=== PATIENT | male | born 1980 | race African-American/Black ===

== ENCOUNTER 2022-04-16 07:14 | Emergency (ER) | payer OTHER ==
[~2022-04-16] VITALS: Ht 172.7 cm; Wt 81.6 kg
--- NOTE | 2022-04-16 07:31 | NUR ---
sent by to ER, for uncontrolled high blood pressure.
--- NOTE | 2022-04-16 07:32 | NUR ---
EKG done at - copy provided and placed in the patient's chart
--- NOTE | 2022-04-16 07:33 | NUR ---
awaiting for MD to see the patient - placed in ER 07
--- NOTE | 2022-04-16 07:33 | NUR ---
the patient also admits that he has been through a lot of work-related stress lately.
[2022-04-16] MEDS ORDERED: ONDANSETRON HCL/PF 4 MG/2 ML VIAL ONE (08:29)
[2022-04-16] MEDS ORDERED: ONDANSETRON HCL/PF 4 MG/2 ML VIAL IV ONE (08:30)
[2022-04-16] MEDS ORDERED: hydrALAZINE HCL 10 MG TABLET PO ONE (08:30)
[2022-04-16] MEDS ORDERED: IV NS 0.9% 1,000 ML IV ONE (08:30)
[2022-04-16] MEDS ORDERED: HYDR25TA4 PO ×2 (08:38→09:03)
[2022-04-16 08:55] LABS: BASOPHILS % (AUTO) 0.2 % (0.0-2.0); EOSINOPHILS % (AUTO) 1.4 % (0.0-6.0); HEMATOCRIT 37 % (39-51); LYMPHOCYTES # (AUTO) 1.7 K/uL (0.8-4.8); LYMPHOCYTES % (AUTO) 22.3 % (20.0-44.0); MEAN CORPUSCULAR HGB CONC 33 g/dl (31.0-36.0); MEAN CORPUSCULAR VOLUME 72 fL (80-96); MONOCYTES # (AUTO) 0.9 K/uL (0.1-1.30); MONOCYTES % (AUTO) 11.8 % (2.0-12.0); NEUTROPHILS # (AUTO) 4.9 K/uL (1.8-8.9); NEUTROPHILS % (AUTO) 64.3 % (43.0-81.0); PLATELET COUNT (AUTO) 280 K/uL (150-450); RED BLOOD CELL COUNT(AUTO) 5.14 MIL/uL (4.5-6.0); WHITE BLOOD COUNT (AUTO) 7.7 K/uL (4.3-11.0)
--- NOTE | 2022-04-16 09:00 | NUR ---
PT DENIES ANY PAIN OR BURRY VISION
[2022-04-16] MEDS ORDERED: ONDA4TAB5 PO ×2 (09:02→09:03)
[2022-04-16 09:11] LABS: ALBUMIN 3.3 g/dL (3.4-5.0); BILIRUBIN,DIRECT 0.2 mg/dL (0.0-0.2); BILIRUBIN,TOTAL 0.5 mg/dL (0.2-1.0); CALCIUM, SERUM 8.2 mg/dL (8.5-10.1); CREATININE 1.3 mg/dL (0.6-1.3); POTASSIUM 3.6 mmol/L (3.5-5.1); TOTAL PROTEIN, SERUM 6.6 g/dL (6.4-8.2)
--- NOTE | 2022-04-16 09:33 | NUR ---
PT REFUSED IV LINE AND IV AND IV HYDRATION PO MEDS GIVEN FOR HYOERTENSION
[2022-04-16 09:45] VITALS: BP 176/100
== END 2022-04-16 09:46 | disposition home or self-care (01) ==
LOC: ER 07:23
DX: I10 Essential (primary) hypertension (principal); R11.2 Nausea with vomiting, unspecified; Z79.899 Other long term (current) drug therapy
CPT/HCPCS: 36415; 80048-TC; 80076-TC; 83690-TC; 85025-TC; J2405; J7030

== ENCOUNTER 2022-05-22 13:38 | Inpatient (IN) | payer OTHER ==
[~2022-05-22] VITALS: Ht 172.7 cm; Wt 81.2 kg
[~2022-05-22 13:38] MED LIST: HYDR25TA4 PO; ONDA4TAB5 PO
--- NOTE | 2022-05-22 13:50 | NUR ---
BIBA 99 FOUND ON THE SIDEWALK ALTERED, WEAK . BS 93 -HX. SEIZURE
--- NOTE | 2022-05-22 14:04 | NUR ---
AT BED SIDE FOR EVAL
--- NOTE | 2022-05-22 14:16 | NUR ---
IV LINE ESTABLISHED 20 G LEFT AC ,
[2022-05-22 14:25] LABS: BASOPHILS % (AUTO) 0.4 % (0.0-2.0); EOSINOPHILS % (AUTO) 0.6 % (0.0-6.0); HEMATOCRIT 38 % (39-51); HEMOGLOBIN 12.4 g/dL (13.5-17.5); LYMPHOCYTES % (AUTO) 11.6 % (20.0-44.0); MEAN CORPUSCULAR HGB CONC 33 g/dl (31.0-36.0); MEAN CORPUSCULAR VOLUME 70 fL (80-96); MONOCYTES # (AUTO) 0.7 K/uL (0.1-1.30); MONOCYTES % (AUTO) 8.8 % (2.0-12.0); NEUTROPHILS # (AUTO) 6.7 K/uL (1.8-8.9); NEUTROPHILS % (AUTO) 78.6 % (43.0-81.0); PLATELET COUNT (AUTO) 423 K/uL (150-450); RED BLOOD CELL COUNT(AUTO) 5.44 MIL/uL (4.5-6.0); WHITE BLOOD COUNT (AUTO) 8.5 K/uL (4.3-11.0)
[2022-05-22] MEDS ORDERED: IV NS 0.9% 1,000 ML BAG IV ONE (14:30)
[2022-05-22 14:58] LABS: CALCIUM, SERUM 8.6 mg/dL (8.5-10.1); CARBON DIOXIDE 21 mmol/L (21-32); CHLORIDE 101 mmol/L (98-107); CREATININE 1.8 mg/dL (0.6-1.3); GLUCOSE 144 mg/dL (74-106); POTASSIUM 3.2 mmol/L (3.5-5.1); SODIUM SERUM 136 mmol/L (136-145); UREA NITROGEN, BLOOD 7 mg/dL (7-18)
[2022-05-22 15:04] LABS: ACETAMINOPHEN < 10 ug/ml (10-30); ALANINE AMINOTRANSFERASE 36 U/L (12-78); ALBUMIN 3.8 g/dL (3.4-5.0); ALKALINE PHOSPHATASE 62 U/L (46-116); ASPARTATE AMINOTRANSFERASE 31 U/L (15-37); BILIRUBIN,DIRECT 0.2 mg/dL (0.0-0.2); BILIRUBIN,TOTAL 0.8 mg/dL (0.2-1.0); TOTAL PROTEIN, SERUM 7.4 g/dL (6.4-8.2)
[2022-05-22 15:07] LABS: ALCOHOL, BLOOD < 3 mg/dL (0-0)
[2022-05-22] MEDS ORDERED: POTASSIUM CHLORIDE 20 MEQ TAB.PRT.SR PO ONE ×3 (16:00→16:09)
--- NOTE | 2022-05-22 16:06 | NUR ---
URINE SAMPLE OBTAINED
[2022-05-22 16:23] LABS: EOSINOPHILS % (MANUAL) 1 % (0-4); LYMPHOCYTES % (MANUAL) 13 % (16-48); MONOCYTES % (MANUAL) 12 % (0-11.0); NEUTROPHILS % (MANUAL) 74 (42-76)
--- NOTE | 2022-05-22 16:40 | NUR ---
PATIENT HAD WITNESSED SEIZURE WHILE MAKING A PHONE CALL FELL FROM THE CHAIR AND HIT HIS NOSE THAT RESULTED IN BLEEDING. 2MG ATIVAN GIVEN IV. ADDITIONAL ORDERS PLACED BY MD. PATIENT IS STABLE RIGHT NOW. SEIZURE PRECAUTION INITIATED.
[2022-05-22] MEDS ORDERED: LORAZEPAM INJ 2 MG/ML VIAL ONE (16:48)
[2022-05-22 17:00] LABS: BILIRUBIN,URINE NEGATIVE (NEGATIVE); COLOR,URINE YELLOW (YELLOW); LEUKOCYTE ESTERASE ,URINE TRACE (NEGATIVE); NITRITE, URINE NEGATIVE (NEGATIVE); PH,URINE 6.5 (5.0-8.0); PROTEIN,URINE TRACE mg/dl (NEGATIVE); UGLUCOSE NEGATIVE (NEGATIVE); UROBILINOGEN,URINE 0.2 EU/dL (0.2)
[2022-05-22] MEDS ORDERED: LEVETIRACETAM (500MG) 1,500 MG in IV NS 0.9% 100 ML IV SCH (17:00)
[2022-05-22] MEDS ORDERED: LORAZEPAM INJ 2 MG/ML VIAL IV ONE (17:00)
[2022-05-22] MEDS ORDERED: BUPR-319 PO (17:01)
--- NOTE | 2022-05-22 17:20 | NUR ---
MOVE SHEET SUBMITTED.
--- NOTE | 2022-05-22 17:25 | NUR ---
covid swab taken
--- NOTE | 2022-05-22 18:15 | NUR ---
MARCIA SUPERVISIOR: [phone]
[2022-05-22 18:38] LABS: BACTERIA,URINE 2+ /HPF (None Seen); RBC,URINE 0-2 /HPF (0-2)
--- NOTE | 2022-05-22 19:19 | NUR ---
DR. RICHARDS SPEAKING WITH DR. BARBER.
--- NOTE | 2022-05-22 19:33 | NUR ---
RM 322-1
--- NOTE | 2022-05-22 19:34 | NUR ---
CLINICAL REPORT GIVEN TO GABINO HERNANDEZ CM
--- NOTE | 2022-05-22 20:33 | NUR ---
[facility] PAGED
--- NOTE | 2022-05-22 20:34 | NUR ---
REPORT GIVEN TO REESE CubaW RN FOR RENE
[2022-05-22] MEDS ORDERED: ONDANSETRON HCL/PF 4 MG/2 ML VIAL IVP PRN (21:00)
--- NOTE | 2022-05-22 22:06 | NUR ---
PT TRANSFERRED TO 3W 322 VIA ACLS PROTOCOL. VSS. ALL BELONGINGS WITH PT
--- NOTE | 2022-05-22 23:00 | NUR ---
FOOD PRODUCTION MANAGERAUTO ADJUDICATION SPECIALIST NOTES: RECEIVED PATIENT VIA GURNEY FROM ER ON STABLE CONDITION, TRANSFER TO ROOM [facility], PLACED COMFORTABLY IN BED, BED IN LOW POSITION CALL LIGHTS WITHIN REACH , NO COMPLAIN OF PAIN AND DISCOMFORT AT THIS TIME, ON ROOM AIR SATURATING WELL, PATIENT ON TELE MONITOR- SR-98, IV LINE AT LAC#20 WITH ONGOING 0.9NSS@75ML/HR INFUSING WELL, SKIN ASSESSMENT DONE AND DOCUMENTED, PICTURE TAKEN FOR SKIN ISSUES, WITH WOUND CONSULT ORDER, INVENTORIES OF PERSONAL BELONGINGS DONE AND SIGNED, PATIENT WAS ORIENTED TO PLACE, REMIND TO USE CALL LIGHTS WHEN NEEDED ASSISTANCE, PATIENT KEPT CLEAN AND DRY ALL NEEDS MET WILL CONTINUE TO MONITOR.
--- NOTE | 2022-05-22 23:15 | NUR ---
RN NOTES SPOKE TO DR AMY ATKINS AND REQUEST AN ORDER FOR DIET PER HOSPITALIST TO PUT ON REGULAR DIET NOTED AND CARRY OUT.
[2022-05-22] MEDS: IV NS 0.9% 1,000 ML IV SCH (23:28)
[2022-05-22] MEDS: CEFTRIAXONE 1 G in IV D5W 50 ML IV SCH (23:28)
[2022-05-22] MEDS: HEPARIN SODIUM, PORCINE 5000 UNITS/1 ML VIAL SQ SCH (23:43)
[2022-05-23] VITALS: BP 145/93
[2022-05-23 04:00] VITALS: BP 147/100
[2022-05-23 05:53] LABS: BASOPHILS % (AUTO) 0.4 % (0.0-2.0); EOSINOPHILS % (AUTO) 0.5 % (0.0-6.0); HEMATOCRIT 34 % (39-51); HEMOGLOBIN 11.2 g/dL (13.5-17.5); LYMPHOCYTES # (AUTO) 1.2 K/uL (0.8-4.8); LYMPHOCYTES % (AUTO) 13.3 % (20.0-44.0); MEAN CORPUSCULAR HGB CONC 33 g/dl (31.0-36.0); MEAN CORPUSCULAR VOLUME 69 fL (80-96); MONOCYTES # (AUTO) 1.1 K/uL (0.1-1.30); MONOCYTES % (AUTO) 11.3 % (2.0-12.0); NEUTROPHILS % (AUTO) 74.5 % (43.0-81.0); PLATELET COUNT (AUTO) 388 K/uL (150-450); RED BLOOD CELL COUNT(AUTO) 4.85 MIL/uL (4.5-6.0); WHITE BLOOD COUNT (AUTO) 9.4 K/uL (4.3-11.0)
--- NOTE | 2022-05-23 06:05 | NUR ---
METER TECHNICIAN CLOSING NOTES; PATIENT SLEEP IN BED COMFORTABLY, BED IN LOW POSITION CALL LIGHTS WITHIN REACH, NO COMPLAIN OF PAIN AND DISCOMFORT AT THIS TIME, ON ROOM AIR SATURATING WELL, NO SOB WAS OBSERVED, ON TELE MONITOR- SR97, NO SYMPTOMS WAS OBSERVED, PATIENT KEPT CLEAN AND DRY ALL NEEDS MET WILL CONTINUE TO MONITOR.
[2022-05-23 06:08] LABS: ALBUMIN 3.1 g/dL (3.4-5.0); BILIRUBIN,TOTAL 1.1 mg/dL (0.2-1.0); CALCIUM, SERUM 7.9 mg/dL (8.5-10.1); CREATININE 1.6 mg/dL (0.6-1.3); MAGNESIUM 2.3 mg/dL (1.8-2.4); PHOSPHORUS 2.5 mg/dL (2.5-4.9); POTASSIUM 3.3 mmol/L (3.5-5.1); TOTAL PROTEIN, SERUM 6.5 g/dL (6.4-8.2)
[2022-05-23 07:00] VITALS: BP 156/108
--- NOTE | 2022-05-23 07:25 | NUR ---
RN OPENING NOTE RECEIVED PATIENT IB BED, ASLEEP, EASILY AWAKENED. NO SIGNS OF ACUTE DISTRESS NOTED. OLN ROOM AIR, NO SOB NOTED, BREATHING EVEN AND UNLABORED. NOTED WITH IV ACCESS ON LEFT AC #20G, INTACT AND PATENT WITH NS @75ML/HR RUNNING. ON TELE MONITOR SHOWING SINUS RHYTHM, HR @98. NO C/O PAIN AT THIS TIME. SAFETY MEASURE IN PLACE. BED IN LOW AND LOCKED POSITION, SIDE RAILS UP X2, CALL LIGHT PLACED WITHIN EASY REACH. WILL CONTINUE TO MONITOR PATIENT.
[2022-05-23] MEDS: LEVETIRACETAM (500MG) 500 MG in IV NS 0.9% 100 ML IV SCH ×2 (08:17→20:23)
[2022-05-23] MEDS: HEPARIN SODIUM, PORCINE 5000 UNITS/1 ML VIAL SQ SCH ×2 (08:18→20:28)
[2022-05-23] MEDS: HYDROCHLOROTHIAZIDE 25 MG TABLET PO SCH (08:21)
--- NOTE | 2022-05-23 08:24 | NUR ---
WOUND CARE CONSULT: PT PRESENTS WITH FACIAL ABRASIONS TO FOREHEAD AND AREA BETWEEN UPPER LIP AND NOSE, PRESENT ON ADMISSION. RECOMMEND SURGICAL CONSULT. DR TAY CALLED. RECOMMENDATIONS MADE FOR SKIN PROTECTION AND DISCUSSED WITH NURSING STAFF.
[2022-05-23] MEDS: NEOMY SULF/BACITRAC ZN/POLY 15 GM TUBE TP SCH ×2 (09:23→19:47)
[2022-05-23] MEDS ORDERED: POTASSIUM CHLORIDE 10 MEQ/50 ML PREMIXED IVPB FOR PERIPHERAL LINE IV ONE (12:00)
[2022-05-23] MEDS: POTASSIUM CL. PREMIX PERIPHER. 50 ML IV SCH ×2 (12:11→13:12)
[2022-05-23] MEDS: IV NS 0.9% 1,000 ML IV SCH (12:50)
[2022-05-23 13:10] VITALS: BP 156/108
[2022-05-23 16:26] VITALS: BP 159/114
--- NOTE | 2022-05-23 18:46 | NUR ---
RN CLOSING NOTE PATIENT IB BED, AWAKE, A/O X3. FAMILY AT BEDSIDE. NO SIGNS OF ACUTE DISTRESS NOTED. REMAINS STABLE ON ROOM AIR, NO SOB NOTED, BREATHING EVEN AND UNLABORED. IV ACCESS ON LEFT AC #20G, INTACT AND PATENT WITH NS @75ML/HR INFUSING WELL. ON TELE MONITOR SHOWING SINUS TACH, HR @112. SAFETY MEASURE MAINTAINED. BED IN LOW AND LOCKED POSITION, SIDE RAILS UP X2, CALL LIGHT PLACED WITHIN EASY REACH. WILL ENDORSE TO NEXT SHIFT FOR CONTINUITY OF CARE.
--- NOTE | 2022-05-23 19:36 | NUR ---
LUMBER DRIVER OPENING NOTE RECEIVED PATIENT FROM AM NURSE; PATIENT IN BED, ASLEEP, EASILY AWAKENED; WITH NO SIGNS OF ACUTE DISTRESS NOTED; STABLE ON ROOM AIR, NO SOB NOTED, BREATHING EVENLY AND UNLABORED; WITH IV ACCESS ON LAC #20G, INTACT AND PATENT WITH NORMAL SALINE INFUSING @ 75ML/HR; ON TELE MONITOR READING SINUS RHYTHM, HR @ 98 BPMS. NO COMPLAINTS OF PAIN AND DISCOMFORT AT THIS TIME; ENCOURAGED VERBALIZATION OF NEEDS; SAFETY MEASURES IN PLACE; BED IN LOW AND LOCKED POSITION, SIDE RAILS UP X 2, CALL LIGHT WITHIN EASY REACH; WILL CONTINUE TO MONITOR THROUGHOUT SHIFT
[2022-05-23] MEDS: CEFTRIAXONE 1 G in IV D5W 50 ML IV SCH (21:02)
[2022-05-23] MEDS: hydrALAZINE HCL IV 20 MG VIAL IV PRN (21:20)
--- NOTE | 2022-05-23 21:30 | NUR ---
KIER DRIER NOTE SURGICAL TECH INFORMED ME THAT PATIENT'S BLOOD PRESSURE WAS 153/120. CHECKED BLOOD PRESSURE MANUALLY AND BLOOD PRESSURE WAS 160/100. CHARGE NURSE MADE AWARE. ADMINISTERED HYDRALAZINE PRN ORDERED. WILL CONTINUE TO MONITOR
--- NOTE | 2022-05-23 22:00 | NUR ---
TEACHER ADULT EDUCATION NOTE PATIENT COMPLAINED FINDING IT HARD TO BREATHE. NOTED EPISODES OF SHORTNESS OF BREATH. HOOKED TO OXYGEN VIA NASAL CANNULA AT 2 LPM. OXYGEN SATURATION AT 100%. WILL CONTINUE TO MONITOR
[2022-05-23] MEDS: MORPHINE SULFATE INJ 2 MG/ML DISP.SYRIN IV PRN (22:51)
[2022-05-24] MEDS: IV NS 0.9% 1,000 ML IV SCH ×2 (00:58→12:22)
[2022-05-24] MEDS: hydrALAZINE HCL IV 20 MG VIAL IV PRN ×3 (04:58→17:56)
--- NOTE | 2022-05-24 05:00 | NUR ---
TEST CONSULTANT NOTE BLOOD PRESSURE WAS 150/102 AND PULSE RATE WAS 95 BPM. ADMINISTERED HYDRALAZINE PRN ORDERED. CHARGE NURSE MADE AWARE. WILL CONTINUE TO MONITOR
[2022-05-24 06:17] LABS: BASOPHILS # (AUTO) 0.1 K/uL (0.0-0.2); EOSINOPHILS % (AUTO) 1.6 % (0.0-6.0); HEMATOCRIT 37 % (39-51); LYMPHOCYTES # (AUTO) 1.6 K/uL (0.8-4.8); MEAN CORPUSCULAR HGB CONC 33 g/dl (31.0-36.0); MEAN CORPUSCULAR VOLUME 69 fL (80-96); NEUTROPHILS # (AUTO) 4.5 K/uL (1.8-8.9); NEUTROPHILS % (AUTO) 61.4 % (43.0-81.0); PLATELET COUNT (AUTO) 399 K/uL (150-450); RED BLOOD CELL COUNT(AUTO) 5.27 MIL/uL (4.5-6.0); WHITE BLOOD COUNT (AUTO) 7.3 K/uL (4.3-11.0)
[2022-05-24 06:28] LABS: CALCIUM, SERUM 8.3 mg/dL (8.5-10.1); CREATININE 1.4 mg/dL (0.6-1.3); MAGNESIUM 2.2 mg/dL (1.8-2.4); PHOSPHORUS 3.1 mg/dL (2.5-4.9); POTASSIUM 3.3 mmol/L (3.5-5.1)
[2022-05-24] MEDS: ACETAMINOPHEN 325 MG TABLET PO PRN ×2 (06:31→17:56)
--- NOTE | 2022-05-24 06:35 | NUR ---
PERIOPERATIVE TECH NOTE PATIENT WOKE UP AND COMPLAINED OF HEADACHE AND BODY SORENESS. CHECKED VITAL SIGNS. INSISTED TO HAVE TYLENOL FOR PAIN RELIEF. ADMINISTERED TYLENOL PRN ORDERED. CHARGE NURSE MADE AWARE. WILL CONTINUE TO MONITOR
--- NOTE | 2022-05-24 07:00 | NUR ---
PROCESS DESCRIPTION WRITER CLOSING NOTE PATIENT IN BED, ASLEEP, EASILY AWAKENED; WITH NO SIGNS OF ACUTE DISTRESS NOTED; STABLE ON ROOM AIR, NO SHORTNESS OF BREATH NOTED, BREATHING EVENLY AND UNLABORED; WITH IV ACCESS ON LAC G#20, INTACT AND PATENT WITH NORMAL SALINE INFUSING AT 75ML/HR; ON TELE MONITOR CURRENTLY READING SINUS RHYTHM HR 90S BPMS; ADMINISTERED MEDICATIONS PRESCRIBED; PATIENT'S NEEDS ATTENDED; MONITORED PATIENT ACCORDINGLY; SAFETY MEASURES IN PLACE; BED IN LOW AND LOCKED POSITION, SIDE RAILS UP X 2, CALL LIGHT WITHIN EASY REACH; WILL ENDORSE TO AM NURSE FOR RENE.
[2022-05-24 08:00] VITALS: BP 151/111
[2022-05-24] MEDS: LEVETIRACETAM (500MG) 500 MG in IV NS 0.9% 100 ML IV SCH (08:48)
[2022-05-24] MEDS: BUPROPION XL 150 MG TAB.ER.24 PO SCH (08:49)
[2022-05-24] MEDS: HYDROCHLOROTHIAZIDE 25 MG TABLET PO SCH (08:49)
[2022-05-24] MEDS: NEOMY SULF/BACITRAC ZN/POLY 15 GM TUBE TP SCH ×2 (08:50→09:10)
[2022-05-24] MEDS: HEPARIN SODIUM, PORCINE 5000 UNITS/1 ML VIAL SQ SCH ×2 (08:50→20:29)
[2022-05-24] MEDS ORDERED: POTASSIUM CHLORIDE 20 MEQ TAB.PRT.SR PO ONE (11:00)
--- NOTE | 2022-05-24 11:16 | NUR ---
[facility] GUNSMITH OPENING NOTE PATIENT AWAKE IN BED, [id number] NO SIGNS OF ACUTE DISTRESS NOTED; STABLE ON ROOM AIR, NO SHORTNESS OF BREATH NOTED, BREATHING EVENLY AND UNLABORED; WITH IV ACCESS ON LAC G#20, INTACT AND PATENT WITH NORMAL SALINE INFUSING AT 75ML/HR; ON TELE MONITOR CURRENTLY READING SINUS RHYTHM HR 90S BPMS; ADMINISTERED MEDICATIONS PRESCRIBED; PATIENT'S NEEDS ATTENDED; MONITORED PATIENT ACCORDINGLY; SAFETY MEASURES IN PLACE; BED IN LOW AND LOCKED POSITION, SIDE RAILS UP X 2, CALL LIGHT WITHIN EASY REACH; WILL ENDORSE TO AM NURSE FOR RENE. Addendum: 05/24/22 at 1120 by IZABELLA SERRA RN [facility] OPENING NOTE PATIENT AWAKE IN BED AROUND 0800H, [id number] NO SIGNS OF ACUTE DISTRESS NOTED; STABLE ON ROOM AIR, NO SHORTNESS OF BREATH NOTED, BREATHING EVENLY AND UNLABORED; WITH IV ACCESS ON LAC G#20, INTACT AND PATENT WITH NORMAL SALINE INFUSING AT 75ML/HR; ON TELE MONITOR CURRENTLY READING SINUS TACHYCARDIA HR 102 BPM; NO C/O PAIN OR DISCOMFORT AT THIS TIME SAFETY MEASURES IN PLACE; BED IN LOW AND LOCKED POSITION, SIDE RAILS UP X 2, CALL LIGHT WITHIN EASY REACH; WILL CONTINUE TO MONITOR.
--- NOTE | 2022-05-24 13:50 | NUR ---
RN NOTES PATIENT C/O CHEST PAIN, VITALS TAKEN. BP-165/120 RR-18 WV-80 SPO2-94%. INCREASED OXYGEN TO 4LPM, [address] SWEEPER OPERATOR MADE AWARE, ECG STAT ORDERED. WILL MONITOR.
[2022-05-24 14:46] LABS: BASOPHILS % (AUTO) 0.3 % (0.0-2.0); EOSINOPHILS % (AUTO) 0.7 % (0.0-6.0); HEMATOCRIT 41 % (39-51); HEMOGLOBIN 13.2 g/dL (13.5-17.5); LYMPHOCYTES # (AUTO) 0.9 K/uL (0.8-4.8); MEAN CORPUSCULAR HGB CONC 33 g/dl (31.0-36.0); MEAN CORPUSCULAR VOLUME 69 fL (80-96); MONOCYTES # (AUTO) 0.8 K/uL (0.1-1.30); MONOCYTES % (AUTO) 11.2 % (2.0-12.0); NEUTROPHILS # (AUTO) 5.1 K/uL (1.8-8.9); NEUTROPHILS % (AUTO) 74.8 % (43.0-81.0); PLATELET COUNT (AUTO) 453 K/uL (150-450); RED BLOOD CELL COUNT(AUTO) 5.89 MIL/uL (4.5-6.0); WHITE BLOOD COUNT (AUTO) 6.8 K/uL (4.3-11.0)
[2022-05-24 15:01] LABS: CREATININE 1.3 mg/dL (0.6-1.3); MAGNESIUM 2.2 mg/dL (1.8-2.4); PHOSPHORUS 2.9 mg/dL (2.5-4.9); POTASSIUM 3.8 mmol/L (3.5-5.1)
[2022-05-24 16:00] VITALS: BP 160/115
[2022-05-24] MEDS: MORPHINE SULFATE INJ 2 MG/ML DISP.SYRIN IV PRN ×2 (16:09→22:52)
--- NOTE | 2022-05-24 16:15 | NUR ---
RN NOTES PRN MORPHINE ADMINISTERED C/O SEVERE PAIN. WILL MONITOR.
--- NOTE | 2022-05-24 18:00 | NUR ---
CYNDI NOTES PATIENT C/O OF HEADACHE AND BP WAS HIGH, PRN HYDRALAZINE ADMINISTERED. WILL MONITOR. Addendum: 05/24/22 at 1839 by IZABELLA SERRA RN BP WAS 156/120, MANUALLY 160/110
--- NOTE | 2022-05-24 18:40 | NUR ---
RN CLOSING NOTE PATIENT IN BED, ASLEEP, EASILY AWAKENED; WITH NO SIGNS OF ACUTE DISTRESS NOTED; ON OXYGEN AT 3LPM, TOLERATING WELL, BREATHING EVENLY AND UNLABORED; WITH IV ACCESS ON LAC G#20 SL, INTACT AND PATENT. ADMINISTERED MEDICATIONS PRESCRIBED; PATIENT'S NEEDS ATTENDED; MONITORED PATIENT ACCORDINGLY; BP RECHECKED WAS 150/100, MANUALLY. SAFETY MEASURES IN PLACE; BED IN LOW AND LOCKED POSITION, SIDE RAILS UP X 2, CALL LIGHT WITHIN EASY REACH; WILL ENDORSE TO NIGHT NURSE FOR RENE.
--- NOTE | 2022-05-24 19:30 | NUR ---
MS RN OPENING NOTE RECEIVED PATIENT IN BED, ASLEEP BUT EASY TO AROUSE AND RESPONSIVE. ABLE TO MAKE NEEDS KNOWN. AFEBRILE AND NOT IN ANY FORM OF ACUTE DISTRESS. ON O2 INHALATION VIA NASAL CANNULA AT 2LPM. WITH IV ACCESS ON LAC 20G-SL. SAFETY MEASURES IN PLACE. KEPT BED IN LOCKED AND IN LOW POSITION. SIDE RAILS UP X2. ADVISED TO USE THE CALL LIGHT WHEN IN NEED OF ASSISTANCE.
[2022-05-24 20:00] VITALS: BP 149/97
[2022-05-24] MEDS: LEVETIRACETAM (250 MG) 250 MG TABLET PO SCH (20:30)
[2022-05-24] MEDS: CEFTRIAXONE 1 G in IV D5W 50 ML IV SCH (20:30)
[2022-05-25] MEDS: ACETAMINOPHEN 325 MG TABLET PO PRN (04:49)
[2022-05-25 05:40] LABS: BASOPHILS % (AUTO) 0.3 % (0.0-2.0); EOSINOPHILS % (AUTO) 0.8 % (0.0-6.0); HEMATOCRIT 39 % (39-51); HEMOGLOBIN 12.8 g/dL (13.5-17.5); LYMPHOCYTES # (AUTO) 1.2 K/uL (0.8-4.8); LYMPHOCYTES % (AUTO) 16.2 % (20.0-44.0); MEAN CORPUSCULAR HGB CONC 33 g/dl (31.0-36.0); MEAN CORPUSCULAR VOLUME 70 fL (80-96); MONOCYTES # (AUTO) 0.6 K/uL (0.1-1.30); MONOCYTES % (AUTO) 8.5 % (2.0-12.0); NEUTROPHILS # (AUTO) 5.4 K/uL (1.8-8.9); NEUTROPHILS % (AUTO) 74.2 % (43.0-81.0); PLATELET COUNT (AUTO) 426 K/uL (150-450); RED BLOOD CELL COUNT(AUTO) 5.59 MIL/uL (4.5-6.0); WHITE BLOOD COUNT (AUTO) 7.3 K/uL (4.3-11.0)
[2022-05-25 05:55] LABS: CREATININE 1.6 mg/dL (0.6-1.3); MAGNESIUM 2.1 mg/dL (1.8-2.4); PHOSPHORUS 3.7 mg/dL (2.5-4.9); POTASSIUM 3.7 mmol/L (3.5-5.1)
--- NOTE | 2022-05-25 06:30 | NUR ---
MS RN CLOSING NOTE PATIENT IN BED, ASLEEP BUT EASY TO AROUSE AND RESPONSIVE. ABLE TO MAKE NEEDS KNOWN. AFEBRILE AND NOT IN ANY FORM OF ACUTE DISTRESS. ON O2 INHALATION VIA NASAL CANNULA AT 3LPM. WITH IV ACCESS ON LAC 20G-SL. MEDICATED ORDERED. CONTINUOUS ON IV ATB, MONITORED FOR ANY ADVERSE REACTION. SEIZURE PRECAUTION OBSERVED. SAFETY MEASURES IN PLACE. KEPT BED IN LOCKED AND IN LOW POSITION. SIDE RAILS UP X2. ADVISED TO USE THE CALL LIGHT WHEN IN NEED OF ASSISTANCE. ALL NURSING NEEDS ATTENDED. ENDORSED TO INCOMING SHIFT FOR CONTINUITY OF CARE.
--- NOTE | 2022-05-25 07:05 | NUR ---
RN OPENING NOTE PATIENT IN BED, ASLEEP BUT EASY TO AROUSE AND RESPONSIVE. ABLE TO MAKE NEEDS KNOWN. AFEBRILE AND NOT IN ANY FORM OF ACUTE DISTRESS. ON O2 INHALATION VIA NASAL CANNULA AT 2LPM. WITH IV ACCESS ON LAC 20G-SL. MEDICATED ORDERED. SEIZURE PRECAUTION OBSERVED. SAFETY MEASURES IN PLACE. KEPT BED IN LOCKED AND IN LOW POSITION. SIDE RAILS UP X2. ADVISED TO USE THE CALL LIGHT WHEN IN NEED OF ASSISTANCE. POSSIBLE D/C PLAN FOR TODAY.
[2022-05-25] MEDS: NEOMY SULF/BACITRAC ZN/POLY 15 GM TUBE TP SCH ×2 (08:43)
[2022-05-25 08:46] VITALS: BP 150/113
[2022-05-25] MEDS: HYDROCHLOROTHIAZIDE 25 MG TABLET PO SCH (08:46)
[2022-05-25] MEDS: LEVETIRACETAM (250 MG) 250 MG TABLET PO SCH (08:46)
[2022-05-25] MEDS: BUPROPION XL 150 MG TAB.ER.24 PO SCH (08:47)
[2022-05-25] MEDS: HEPARIN SODIUM, PORCINE 5000 UNITS/1 ML VIAL SQ SCH (08:48)
[2022-05-25] MEDS ORDERED: CEPH500C2 PO (10:54)
[2022-05-25] MEDS ORDERED: LEVE250T2 PO (10:54)
--- NOTE | 2022-05-25 11:00 | NUR ---
GOT D/C ORDER FROM DR VERNON. PT IS IN STABLE CONDITION, GOING TO BE D/C HOME, PICKED UP BY FAMILY MEMBER.
[2022-05-25] MEDS ORDERED: CEFTRIAXONE 1 G in IV D5W 50 ML IV SCH (15:00)
== END 2022-05-25 11:45 | disposition home or self-care (01) | DRG 53 ==
LOC: ER 14:04 → TELE 20:31 → MED 05-24 10:20
PROVIDERS: ADMIT Internal Medicine; ATTEND Nurse Practitioner Acute Care
DX: G40.409 Other generalized epilepsy and epileptic syndromes, not intractable, without status epilepticus (principal); N17.0 Acute kidney failure with tubular necrosis; G92.8 Other toxic encephalopathy; E88.09 Other disorders of plasma-protein metabolism, not elsewhere classified; I67.89 Other cerebrovascular disease; D50.9 Iron deficiency anemia, unspecified; F19.11 Other psychoactive substance abuse, in remission; E87.6 Hypokalemia; I10 Essential (primary) hypertension; N39.0 Urinary tract infection, site not specified; S02.2XXA Fracture of nasal bones, initial encounter for closed fracture; Z20.822 Contact with and (suspected) exposure to COVID-19; Z79.899 Other long term (current) drug therapy; W19.XXXA Unspecified fall, initial encounter; Y92.414 Local residential or business street as the place of occurrence of the external cause; S00.81XA Abrasion of other part of head, initial encounter; Z91.14 Patient's other noncompliance with medication regimen; S00.33XA Contusion of nose, initial encounter
CPT/HCPCS: 36415; 70450-TC; 70486-TC; 71045-TC; 72125-TC; 76770-TC; 80048-TC; 80053-TC; 80076-TC; 81001; 82962-TC; 83605-TC; 83735-TC; 84100-TC; 84484-TC; 85025-TC; 85730-TC; 87040-TC; 87081-TC; 87086-TC; 95819-TC; A4223; C9803; G0378; G0480; J0360; J0696; J1644; J1953; J2060; J2270; J3480; J7030; J7060

== ENCOUNTER 2022-08-13 05:00 | Emergency (ER) | payer OTHER ==
[~2022-08-13] VITALS: Ht 172.7 cm; Wt 79.4 kg
[~2022-08-13 05:00] MED LIST changes: +BUPR-319 PO; +CEPH500C2 PO; +LEVE250T2 PO; -ONDA4TAB5 PO
--- NOTE | 2022-08-13 05:18 | NUR ---
[id number] FROM HOME FOR C/O ANXIETY/PANIC ATTACK W HX OF PANIC ATTACK. RECENTLY DIAGNOSED WITH EPILEPSY ON KEPPRA AND FELL ASLEEP BEFORE TAKING LAST NIGHT'S DOSE, THOUGHT HE WAS HAVING AN AURA AND BECAME VERY ANXIOUS. TAKES LITHIUM, WELLBUTRIN, AND PROZAC FOR MOOD DISORDER. PT AWAKE AND ALERT, VISIBLY ANXIOUS AT TRIAGE AND V/S SHOW TACYCARDIA. TO ED BED 12.
[2022-08-13] MEDS ORDERED: LORAZEPAM 1 MG TABLET PO ONE (07:00)
[2022-08-13] MEDS ORDERED: LEVETIRACETAM (250 MG) 250 MG TABLET PO ONE ×2 (07:00→07:06)
[2022-08-13] MEDS ORDERED: LORAZEPAM 1 MG TABLET ONE (07:06)
[2022-08-13 07:09] VITALS: BP 129/99
[2022-08-13] MEDS ORDERED: ARIP5TAB10 PO (07:15)
[2022-08-13] MEDS ORDERED: LEVE500T9 PO (07:15)
--- NOTE | 2022-08-13 07:26 | NUR ---
Patient discharged to home in stable condition, ambulating. Written and verbal after care instructions given. Patient verbalizes understanding of instruction.
== END 2022-08-13 07:26 | disposition home or self-care (01) ==
LOC: ER 05:02
DX: G40.909 Epilepsy, unspecified, not intractable, without status epilepticus (principal); F41.9 Anxiety disorder, unspecified; F99 Mental disorder, not otherwise specified; I10 Essential (primary) hypertension; Z79.899 Other long term (current) drug therapy